=== PATIENT | female | born 1985 | race Caucasian/White ===

== ENCOUNTER 2018-05-08 06:03 | Inpatient (IN) ==
[2018-05-08] MEDS ORDERED: ONDANSETRON HCL/PF 2 MG/ML VIAL IV PRN ×2 (06:23→13:57)
[2018-05-08] MEDS ORDERED: DEXTROSE 5%-LACTATED RINGERS 1,000 ML IV PRN (06:23)
[2018-05-08] MEDS ORDERED: OXYTOCIN/DEXTROSE 5%-WATER 30 UNITS/500 ML BAG IV ONE ×2 (06:23→18:50)
[2018-05-08] MEDS: CALCIUM CARBONATE 500 MG TAB.CHEW PO PRN ×2 (10:46→17:50)
[2018-05-08] MEDS: RINGER'S SOLUTION,LACTATED 1,000 ML IV ONE ×2 (12:47→14:57)
--- NOTE | 2018-05-08 13:26 | PN ---
Progess Note - Interim Date: 05/08/18 Time: 13:25 Narrative: 05/08/18 13:25 Patient becoming more uncomfortable with contractions Vital signs stable. Pitocin at 12 mu/min. FHT: 125 baseline, reassuring Contractions q 2-3 min Cervix:/80/-2, AROM-clear Impression: Intrauterine at 39 weeks. Elective induction of labor Plan: Continue present plan. Epidural PRN
[2018-05-08] MEDS ORDERED: NALOXONE HCL 1 MG/1 ML SYRG IV PRN (13:57)
[2018-05-08] MEDS ORDERED: BUPIVACAINE HCL/0.9 % NACL/PF 250 ML EP PRN (13:57)
[2018-05-08] MEDS ORDERED: fentaNYL CITRATE/PF 50 MCG/ML AMPUL IT SCH (14:00)
--- NOTE | 2018-05-08 15:28 | ANES ---
Anesthesia Pre Procedure Eval Vitals/Labs: Last Vital Signs Temp 36.3 C 05/08/18 06:25 Pulse 84 05/08/18 06:25 Resp 18 05/08/18 06:25 BP 117/60 05/08/18 06:25 Pulse Ox 96 05/08/18 06:25 HOME MEDICATIONS Vit No.78/Iron/FA [Prenatabs FA Tablet] 1 tab PO DAILY 06/09/12 [Last Taken 05/08/18 05:00] Allergies/Adverse Reactions: Allergies Allergy/AdvReac Type Severity Reaction Status Date / Time No Known Allergies Allergy Verified 05/03/18 15:13 - Planned Procedure Planned Procedure: ELECTIVE INDUCTION Medication List Reviewed:: Yes Allergies Verified: Yes Medical History (Last Reviewed 05/08/18 @ 15:27 by Jenaro Castillo CRNA) Currently Onset Date: Unknown Obesity Onset Date: Unknown [place] teeth extracted Onset Date: Unknown age 17 Abnormal Pap smear of cervix Onset Date: ~2010 Acne Onset Date: Unknown controlled with rx Spontaneous Onset Date: ~06/2012 Vaginitis Onset Date: ~02/05/14 Surgical History (Last Reviewed 05/08/18 @ 15:27 by Jenaro Castillo CRNA) History of conization of cervix Onset Date: Unknown age 17, had cone bx in IC, showed ca in situ, normal paps since Family History (Last Reviewed 05/08/18 @ 15:27 by Jenaro Castillo CRNA) Father Heart disease Grandmother Diabetes type 2 Mother Polio - Family Anesthesia History Family History:: no untoward family reactions to anesthesia - Airway/Neck/Teeth Within Normal Limits:: Yes Teeth Condition: intact Denture Type: None Neck Exam: full range of motion Mallampatti Score: 2 Thyromental (T-M) distance: > 6 cm Mandibulo Hyoid distance: > 3 cm - Respiratory Smoking Status: Never smoker Sleep Apnea currently treated: No Sleep Apnea by current assessment: No - Cardiovascular Tolerate Activity: Good Heart Sounds: S1 & S2, Regular - Anesthesia Assessment and Plan ASA Class: PS, II, E Anesthesia Type Plan: Epidural
--- NOTE | 2018-05-08 15:29 | ANES ---
Post Anesthesia Assessment - Vital Signs Vitals: Last Vital Signs Temp 36.3 C 05/08/18 06:25 Pulse 84 05/08/18 06:25 Resp 18 05/08/18 06:25 BP 117/60 05/08/18 06:25 Pulse Ox 96 05/08/18 06:25 Airway Patency: Normal - Mental Status Level Of Consciousness: Awake - Pain Level Pain Score: 2 - N/V Assessment Nausea/Vomiting Presence: None Dehydration:: No
--- NOTE | 2018-05-08 15:29 | ANES ---
Post Anesthesia Discharge - Transfer of Care Transfer of Care handoff given to nurse: Yes - Anesthesia Post Op Note Anesthesia Post Op Note: Care transferred to OB RN
--- NOTE | 2018-05-08 15:30 | ANES ---
Anesthesia Procedure Note Procedure Note: ANESTHESIA PROCEDURE NOTE Date of Procedure: [] 05/08/2018 Time of procedure:[]. 1440 Performed by: John Castillo CRNA Billet Driller: None. Preprocedure diagnosis: Active labor. Post procedure diagnosis: Same. Procedure: Insertion of labor epidural. Indications: The patient is a [32] -year-old [multigravida] female in active labor requesting labor epidural for pain management. Findings: See below. Details of the procedure: The patient was placed in a sitting position. Back was prepped with DuraPrep. Patient was then draped in a sterile fashion. Lidocaine 1% was infiltrated to the skin and subcutaneous tissues at the level of the L3 4 interspace. The epidural space was identified using a 18-gauge Tuohy needle with [id number] technique. 20 mcg fentanyl was given intrathecally using a 27 ga. spinal needle. Epidural catheter was inserted without difficulty. Negative test dose was elicited using 5 mL of 1.5% preservative-free lidocaine plus epinephrine 1 200,000. The epidural catheter was then taped and secured in place. EBL: Minimal. Fluids: N/A. Specimen: N/A. Post procedure condition: The patient tolerated the procedure well. No complications were noted. Thank you for this consultation. Ann CRNA
--- NOTE | 2018-05-08 17:04 | HP ---
Chief Complaint - Chief Complaint Date of Service: 05/08/18 Time of Service: 17:00 - Seen this am Chief Complaint: elective induction of labor History of Present Illness: 32 yo at 39 wks here for elective induction of labor. This complicated by obesity. Rh negative Rubella immune GBS negative Medical History (Last Reviewed 05/08/18 @ 17:01 by Bob Henley DO) Currently Onset Date: Unknown Obesity Onset Date: Unknown [place] teeth extracted Onset Date: Unknown age 17 Abnormal Pap smear of cervix Onset Date: ~2010 Acne Onset Date: Unknown controlled with rx Spontaneous Onset Date: ~06/2012 Vaginitis Onset Date: ~02/05/14 Surgical History: Surgical History (Last Reviewed 05/08/18 @ 17:01 by Bob Henley DO) History of conization of cervix Onset Date: Unknown age 17, had cone bx in IC, showed ca in situ, normal paps since Family History: Family History (Last Reviewed 05/08/18 @ 17:01 by Bob Henley DO) Father Heart disease Grandmother Diabetes type 2 Mother Polio Social History: Preferred Language Bangladeshi Smoking Status Never smoker (Last Updated 05/03/18 @ 15:26 by Bob Henley DO) No Social History Section defined Review Of Systems (GEN) - Review of Systems Generalized/Overall Review: Present: No Symptoms Reported EENTM: Present: No Symptoms Reported Respiratory: Present: No Symptoms Reported Cardiac: Present: No Symptoms Reported Abdominal: Present: No Symptoms Reported Genitourinary: Present: No Symptoms Reported Musculoskeletal: Present: No Symptoms Reported Neurological: Present: No Symptoms Reported Skin: Present: No Symptoms Reported Endocrine: Present: No Symptoms Reported Allergies/Adverse Reactions: Allergies Allergy/AdvReac Type Severity Reaction Status Date / Time No Known Allergies Allergy Verified 05/03/18 15:13 Home Medications: HOME MEDICATIONS Vit No.78/Iron/FA [Prenatabs FA Tablet] 1 tab PO DAILY 06/09/12 [Last Taken 05/08/18 05:00] Exam - Exam Vital Signs: Vital Signs - Last Taken Temp 36.3 C 05/08/18 06:25 Pulse 84 05/08/18 06:25 Resp 18 05/08/18 06:25 BP 117/60 05/08/18 06:25 Pulse Ox 96 05/08/18 06:25 Constitutional: Present: Alert, Oriented x3, Cooperative, No distress ENT Exam: Present: hearing grossly normal Breasts: Present: Exam deferred Respiratory: Present: lungs clear, no respiratory distress Cardiovascular/Chest: Present: regular rate, rhythm Abdomen: Present: soft, nontender, no rebound tenderness, other - gravid /Rectal: Present: Other - cervix 1/40/-2 Extremity: Present: no pedal edema, no calf tenderness Skin Exam: Present: normal color, warm/dry, no cyanosis Neurologic: Present: alert, normal mood/affect, oriented x 3 Appearance: Present: appropriate appearance, appropriate insight Eye contact: Present: cooperative, good eye contact Thoughts: Present: normal thought pattern Assessment/Plan - Assessment/Plan (1) Encounter for elective induction of labor Assessment: Admit for pitocin induction of labor. Epidural PRN. Problem: Acute (2) BMI 38.0-38.9,adult Problem: Chronic
[2018-05-08] MEDS ORDERED: GLYCERIN/WITCH HAZEL LEAF 40 APPL BOX TP PRN (18:50)
[2018-05-08] MEDS ORDERED: oxyCODONE HCL/ACETAMINOPHEN 1 TAB TABLET PO PRN (18:50)
[2018-05-08] MEDS ORDERED: SENNOSIDES 8.6 MG TABLET PO PRN (18:50)
[2018-05-08] MEDS ORDERED: BENZOCAINE/MENTHOL 81 SPRAY CAN TP PRN (18:50)
[2018-05-08] MEDS ORDERED: BISACODYL 10 MG SUPP.RECT RC PRN (18:50)
[2018-05-08] MEDS ORDERED: HYDROCORTISONE 30 APPL TUBE TP PRN (18:50)
--- NOTE | 2018-05-08 18:52 | OR ---
Operative Report - Dictated Report Narrative: Spontaneous vaginal delivery of viable male at 1833 on 05/08/2018 with Apgars 8 and 9, weighing 3883 g in FAROOQ position with tight nuchal cord 1 Cord clamping delayed approximately 1 minute Placenta delivered complete, intact, with three vessel cord Estimated blood loss: 100 mL Anesthesia: epidural Lacerations: None
--- NOTE | 2018-05-08 18:53 | PN ---
Progess Note - Interim Date: 05/08/18 Time: 18:52 History for MU Definition: * The number of deliveries resulting in a live the patient experienced prior to current hospitalization * The previous delivery of live twins or any live multiple gestation is considered one live event. *If primagravida or nulliparous is documented select zero for the number of previous live births. Live Events: 1
[2018-05-08] MEDS: oxyCODONE HCL/ACETAMINOPHEN 1 TAB TABLET PO PRN ×2 (19:11→22:36)
[2018-05-08] MEDS: IBUPROFEN 800 MG TABLET PO PRN (19:11)
[2018-05-08] MEDS: DOCUSATE SODIUM 100 MG CAPSULE PO SCH (21:03)
[2018-05-09] MEDS: oxyCODONE HCL/ACETAMINOPHEN 1 TAB TABLET PO PRN ×5 (01:08→20:42)
[2018-05-09] MEDS: IBUPROFEN 800 MG TABLET PO PRN ×4 (01:08→20:42)
[2018-05-09] MEDS ORDERED: CALCIUM CARBONATE 500 MG TAB.CHEW PO PRN (01:11)
[2018-05-09] MEDS: DOCUSATE SODIUM 100 MG CAPSULE PO SCH ×3 (07:41→20:41)
--- NOTE | 2018-05-09 14:03 | PN ---
Subjective - Date and Time Seen Date: 05/09/18 Time: 14:02 Objective - Vitals Vitals: Last Vital Signs Temp 36.6 C 05/09/18 13:13 Pulse 84 05/09/18 13:13 Resp 16 05/09/18 13:13 BP 120/72 05/09/18 13:13 Pulse Ox 95 05/09/18 13:13 Patient denies complaints. Lochia wnl Abdomen - soft, nontender Uterus - firm, at umbilicus - 1 No calf tenderness Impression: day #1 - s/p spontaneous vaginal delivery. Plan: Continue routine care Assessment/Plan - Problems/Diagnosis (1) Encounter for elective induction of labor Problem: Acute (2) BMI 38.0-38.9,adult Problem: Chronic
[2018-05-10 07:13] VITALS: BP 132/78
--- NOTE | 2018-05-10 07:18 | PN ---
Subjective - Date and Time Seen Date: 05/10/18 Time: 07:17 Objective - Vitals Vitals: Last Vital Signs Temp 36.6 C 05/10/18 07:07 Pulse 76 05/10/18 07:07 Resp 18 05/10/18 07:07 BP 132/78 05/10/18 07:07 Pulse Ox 97 05/10/18 07:07 Patient denies complaints. Lochia wnl Abdomen - soft, nontender Uterus - firm, at umbilicus - 1 No calf tenderness Impression: day #1 - s/p spontaneous vaginal delivery. Plan: Continue routine care Assessment/Plan - Problems/Diagnosis (1) Encounter for elective induction of labor Problem: Acute (2) BMI 38.0-38.9,adult Problem: Chronic
[2018-05-10] MEDS: oxyCODONE HCL/ACETAMINOPHEN 1 TAB TABLET PO PRN (08:38)
[2018-05-10] MEDS: IBUPROFEN 800 MG TABLET PO PRN (08:38)
== END 2018-05-10 09:30 | disposition home or self-care (01) | DRG 807 ==
LOC: OB 06:03
PROVIDERS: ADMIT Obstetrics & Gynecology; ATTEND Obstetrics & Gynecology
CPT/HCPCS: 59025